=== PATIENT | male | born 1985 | race Caucasian/White ===

== ENCOUNTER 2018-11-30 10:54 | Emergency (ER) | payer MEDICAID ==
[~2018-11-30] VITALS: Ht 162.6 cm; Wt 49.9 kg
[2018-11-30 11:08] VITALS: BP 113/77
--- NOTE | 2018-11-30 11:23 | NUR ---
PT AMBULATED TO ER BED 7
--- NOTE | 2018-11-30 11:31 | NUR ---
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
--- NOTE | 2018-11-30 12:21 | NUR ---
DR. CABA BEDSIDE EVALUATING PT
[2018-11-30 12:40] VITALS: BP 115/79
--- NOTE | 2018-11-30 12:40 | NUR ---
Patient discharged with v/s stable. Written and verbal after care instructions given and explained. Patient alert, oriented and verbalized understanding of instructions. Ambulatory with steady gait. All questions addressed prior to discharge. ID band removed. Patient advised to follow up with PMD. Rx of hydrocortisone topical cream and claritin tab given. Patient educated on indication of medication including possible reaction and side effects. Opportunity to ask questions provided and answered.
== END 2018-11-30 12:40 | disposition home or self-care (01) ==
LOC: MED 10:54
DX: L25.9 Unspecified contact dermatitis, unspecified cause (principal)
CPT/HCPCS: 99283